=== PATIENT | female | born 1960 | race Caucasian/White ===

== ENCOUNTER → 2019-02-03 | Outpatient (CLI) | payer OTHER ==
[2019-02-12 14:29] LABS: Alanine Aminotransferase 14 units/L (7-56); Albumin 4.3 g/dL (3.9-5); BUN/Creatinine Ratio 37; Blood Urea Nitrogen 11 mg/dL (7-17); Calcium 9.4 mg/dL (8.4-10.2); Chol/HDL Ratio 3.94 %; HDL Cholesterol 50 mg/dL (40-59); LDL Cholesterol,Direct 140 mg/dL (50-130)
[2019-02-12 14:30] LABS: Creatinine,Urine 86.6 mg/dL (0.1-20.0); Hemolysis Index 9
[2019-02-12 14:31] LABS: Microalbumin/Creatinine Ratio 13.8 ug/mg
[2019-02-12 14:48] LABS: Bilirubin,Urine Negative (Negative); Color,Urine Yellow (Yellow)
[2019-02-12 14:49] LABS: Blood,Urine Negative (Negative); Protein,Urine <15 mg/dL mg/dL (Negative); Urobilinogen,Urine < 2.0 mg/dL (<2.0)
[2019-02-12 14:50] LABS: Mucus,Urine Few /HPF; RBC,Urine < 1.0 /HPF (0.0-6.0); WBC,Urine < 1.0 /HPF (0.0-6.0)
[2019-02-12 14:51] LABS: Hematocrit 43.8 % (30.3-42.9); Hemoglobin 14.9 gm/dl (10.1-14.3); Mean Corpuscular HGB Conc 34 % (30-34); Mean Corpuscular Volume 86 fl (79-97); Platelet Count 248 K/mm3 (140-440); Red Blood Count 5.11 M/mm3 (3.65-5.03); Red Cell Distribution Width 12.7 % (13.2-15.2)
[2019-02-12 14:53] LABS: Total Cells Counted 100
[2019-02-12 14:54] LABS: Eosinophils % (Manual) 0 % (0.0-4.3)
[2019-02-12 14:56] LABS: RBC Morphology Normal
[2019-02-12 14:57] LABS: Platelet Estimate Consistent w Auto
[2019-02-18 13:36] LABS: Vitamin D, 25-OH, D2 SEE SCANNED RESULT
== END | disposition home or self-care (01) ==
LOC: LAB 11:30
PROVIDERS: ATTEND Internal Medicine
DX: E11.9 Type 2 diabetes mellitus without complications (principal); Z00.00 Encounter for general adult medical examination without abnormal findings; E78.5 Hyperlipidemia, unspecified; Z13.29 Encounter for screening for other suspected endocrine disorder; N39.0 Urinary tract infection, site not specified; Z13.21 Encounter for screening for nutritional disorder
CPT/HCPCS: 36415; 80053; 80061; 81001; 82043; 82306; 82607; 83036; 84443; 85007; 85025

== ENCOUNTER 2019-02-08 15:06 | Outpatient (CLI) | payer OTHER ==
--- NOTE | 2019-02-09 13:45 | Mammography Report ---
DIGITAL SCREENING MAMMOGRAM WITH CAD, 02/08/2019 INDICATION: Routine screening mammography. TECHNIQUE: Digital bilateral 2D mammography was obtained in the craniocaudal and mediolateral obliq ue projections. This examination was interpreted with the benefit of Computer-Aided Detection analysi s. COMPARISON: None. FINDINGS: Breast Density: The breasts are heterogeneously dense, which may obscure small masses. There is no evidence of dominant mass, suspicious calcifications or architectural distortion in eithe r breast. IMPRESSION: No mammographic evidence of malignancy. Follow up recommendation: Routine yearly BI-RADS Category 2: Benign. A "normal" or negative report should not discourage follow up or biopsy of a clinically significant f inding. A written summary of these findings will be mailed to the patient. The patient will be entered into a mammography reporting system which will generate a reminder letter for the patient's next appointmen t at the appropriate interval. The [employer] recommends yearly mammograms starting at age 40 and continuing as l piedad as a woman is in good health. Breast MRI is recommended for women with an approximate 20-25% or greater lifetime risk of breast cancer, including women with a strong family history of breast or ova iman cancer or who have been treated for Hodgkin's disease. Signer Name: Onesimo Jeffers MD Signed: 02/09/2019 1:41 PM Workstation Name: [id number]
== END 2019-02-08 15:07 | disposition home or self-care (01) ==
LOC: MAMMO 15:06
PROVIDERS: ATTEND Internal Medicine
DX: Z12.31 Encounter for screening mammogram for malignant neoplasm of breast (principal)
CPT/HCPCS: 77067